=== PATIENT | female | born 1955 | race Caucasian/White ===

== ENCOUNTER 2016-11-03 11:31 | Emergency (ER) | payer OTHER ==
[2016-11-03 11:40] VITALS: BP 155/71; PULSE 98; TEMP 98.3; BMI 26.4
[2016-11-03] MEDS ORDERED: NS 1,000 ML IV ONE (12:06)
[2016-11-03 13:13] LABS: BLOOD UREA NITROGEN 15 MG/DL (7-17); CALCIUM 9.4 MG/DL (8.4-10.2); CALCULATED OSMOLALITY 271 MOs/Kg (270-290); CHLORIDE 106 mEq/L (98-107); GLUCOSE 78 MG/DL (70-99); SODIUM LEVEL 141 mEq/L (137-146)
--- NOTE | 2016-11-03 13:29 | EDPRACDOC ---
- General Information Chief Complaint: Nausea,Vomiting,Diarrhea Stated Complaint: DIARRHEA Time Seen by Provider: 11/03/16 12:00 Information Source: Patient Home Medications: Home Medications Alprazolam [Xanax] 0.25 - 0.5 mg PO DAILY PRN 11/03/16 Ondansetron HCl [Zofran] 4 mg PO TID PRN #14 tablet 11/03/16 Pantoprazole Sodium [Protonix] 20 mg PO DAILY 11/03/16 Allergies/Adverse Reactions: Allergies Allergy/AdvReac Type Severity Reaction Status Date / Time No Known Allergies Allergy Verified 11/03/16 11:39 - History of Present Illness Onset: THIS AM Description: Reports: Spontaneous Recent: Reports: Contact Exposure (IN ED AND HOSPITAL ENVIRONMENT) Recent Ingestion of: Reports: Nothing Relevant History: Reports: None Diarrhea Quality: Reports: Watery, Explosive. Denies: Bloody Associated Signs & Symptoms: Reports: Abdominal Pain (INTERMITTENT CRAMPY). Denies: Fever, Anorexia, Nausea, Vomiting, Hematochezia Pain Quality: Reports: Cramping, Sharp Pain Location: Reports: Diffuse ED Past Medical History - History Reviewed Yes Nurses notes reviewed and agree except as marked - Patient Medical History GI/ History: Reports: Gastroesophageal Reflux Psychological History: Reports: Anxiety. Denies: Depression Surgical History: Denies: Hysterectomy - Social Medical History Smoking Status: Never smoker EDM Review of Systems - Review of Systems ROS Negative Except as Marked: Yes All systems reviewed and were negative except as marked - Physical Exam Constitutional: Alert (Awake), No apparent distress Oriented to: Time, Person, Place Last recorded Vital Signs: Last Vital Signs Temp 98.3 F 11/03/16 11:35 Pulse 98 11/03/16 11:35 Resp 20 11/03/16 11:35 BP 155/71 11/03/16 11:35 Pulse Ox 98 11/03/16 11:35 Oxygen Pulse Oxygen Saturation 98 O2 Device Oxygen Flow Rate Fraction of Inspired Oxygen ( FIO2) - HEENT Head: Normal ( normocephalic) Eye Exam: Normal (PERRL, EOMI, Sclera white) Oropharynx: Normal (Pharynx:Moist without exudate,Gums-no swelling) Tympanic Membrane: Normal ENT EAC: Normal TMJ: Normal Nose: No Symptoms Reported (septum midline) Neck: Normal (FROM, trachea at midline) - Respiratory/Cardiovascular Respiratory: Normal - CTA (BBS clear to auscultation without adventitious sounds ) Cardiovascular: Normal (RRR without murmur, gallop or rub) - GI Auscultation: Normal (NABS) Palpation: Normal (Soft,No rebound or guarding, non distended) Tenderness: Non tender Lee's Sign: Negative - Musculoskeletal Back: Normal (Non-Tender) Extremities: Normal (Normal tone, Pulses 2+ No cyanosis or edema, FROM) - Integumentary Skin: Normal, Warm, Dry Lymphatics: Normal (no adenopathy) - Neurologic Memory Impaired: Normal Motor Function: Normal (Normal tone, Pulses 2+ No cyanosis or edema, FROM) Cranial Nerve: Normal (CN II-X11 intact sensation, strength 5/5) Cerebellar: Normal Mood Description: Normal Perception: Normal - Results 11/03/16 12:45 - Departure Disposition: Home Condition: Stable Final Diagnosis: Diarrhea Qualifiers: Diarrhea type: presumed infectious Qualified Code(s): A09 - Infectious gastroenteritis and colitis, unspecified Instructions: Acute Diarrhea (ED) Education/Counseling Given To: Patient Education/Counseling Given Regarding: Diagnosis, Treatment, Prognosis Prescriptions: Ondansetron HCl [Zofran] 4 mg PO TID PRN #14 tablet PRN Reason: NAUSEA OR VOMITING Additional Instructions: Drink sips of Gatorade every 2-3 minutes while awake. Do NOT drink large volumes of fluid at once. If you vomit, take the nausea-vomiting medicine prescribed, wait ~ 30 minutes, and restart the sipping process. Return to the Emergency Department if you think you are getting dehydrated, have persistent abdominal pain that is unrelenting, have worse or different symptoms, or any concerns.
== END 2016-11-03 14:50 | disposition home or self-care (01) ==
LOC: ED 11:31
DX: A09 Infectious gastroenteritis and colitis, unspecified (principal)
CPT/HCPCS: 36415; 80048; 96360; 99282